=== PATIENT | female | born 1945 | race African-American/Black ===

== ENCOUNTER 2022-03-18 15:57 | Inpatient (IN) | payer OTHER ==
--- OUTSIDE RECORDS SUMMARY | 2022-03-18 16:00 | XMS REPORT | Continuity of Care Document ---
:[address] [facility] t Address [address] [place] [address] Care Team Providers Name Role Phone Carmel-Mbayo_A_AH Attending Clinician Unavailable Carmel-Mbayo_A_AH Admitting Clinician Unavailable Payers Payer Name Policy Type Policy Number Effective Date Expiration Date S edith [facility] - [id number] 2019 [employer] 00:00:00 (MEDICARE REPLACEMENT/ADVANT AGE - HMO) Problems This patient has no known problems. Allergies, Adverse Reactions, Alerts This patient has no known allergies or adverse reactions. Medications This patient has no known medications. Procedures This patient has no known procedures. Encounters Start End Encounter Admission Attending Care Care Encounter Source Date/Time Date/Time Type Type Clinicians Facility Department ID 2019-04-15 2019-04-15 Outpatient Carmel-Mbayo VFP VFP [phone] [facility] 07:13:00 07:13:00 _A_AH [id number] Family Practic e 2019-04-15 2019-04-15 Outpatient Carmel-Mbayo VFP VFP [id number] [facility] 07:13:00 07:13:00 _A_AH [id number] Family Practic e Results This patient has no known results.
[2022-03-18 16:28] LABS: Absolute Lymphocytes (CBC) 2.8 K/uL (0.7-4.9); Hematocrit 36.1 % (36.0-45.0); Lymphocytes % 28.9 % (15.3-44.8); MCV 83.9 fL (80-100); RBC Red Blood Cell Count 4.31 M/uL (3.86-4.86)
[2022-03-18 16:32] LABS: Protime INR 1.01
--- NOTE | 2022-03-18 16:44 | RAD REPORT ---
EXAM DESCRIPTION: CT - Head Brain Wo Cont - 03/18/2022 4:39 pm CLINICAL HISTORY: dizzy near syncope COMPARISON: No comparisons TECHNIQUE: All CT scans are performed using dose optimization technique as appropriate and may inclu de automated exposure control or mA/KV adjustment according to patient size. FINDINGS: No intracranial hemorrhage, hydrocephalus or extra-axial fluid collection.No areas of brai n edema or evidence of midline shift. The paranasal sinuses and mastoids are clear. The calvarium is intact. IMPRESSION: No acute intracranial abnormality.
[2022-03-18 16:49] LABS: MPV 9.8 fL (7.6-11.3)
[2022-03-18 17:03] LABS: Albumin 3.6 g/dL (3.4-5.0); Bilirubin Direct 0.2 mg/dL (0-0.2); Bilirubin Total 0.6 mg/dL (0.2-1.0); Troponin High Sensitivity 23.7 pg/mL (<58.9)
[2022-03-18 17:05] LABS: Potassium 2.9 mmol/L (3.5-5.1)
[2022-03-18 17:20] LABS: Urine Blood Negative (Negative); Urine Glucose Negative (Negative); Urine Protein 1+ (Negative); Urine Specific Gravity 1.015 (1.005-1.030); Urine pH 6.5 (5.0-7.0)
--- NOTE | 2022-03-18 17:48 | RAD REPORT ---
EXAM DESCRIPTION: RAD - Chest Single View - 03/18/2022 5:43 pm CLINICAL HISTORY: SOB Chest pain. COMPARISON: No comparisons FINDINGS: Portable technique limits examination quality. The lungs are grossly clear. The heart is normal in size. No displaced fractures. IMPRESSION: No acute intrathoracic process suspected.
--- NOTE | 2022-03-18 18:12 | EDPHYS ---
Physician Documentation [facility] Name: Mariama Coughlin Age: 76 yrs Sex: Female : 1945 Arrival Date: 03/18/2022 Time: 15:58 Bed 4 Private MD: ED Physician Bishop Perrin HPI: 03/18 16:18 This 76 yrs old Black Female presents to ER via EMS with complaints of near syncope, rn sob. 16:18 The patient has experienced near-syncope. Onset: The symptoms/episode began/occurred rn just prior to arrival. Duration: This was a single episode. Associated injury: The patient did not suffer any apparent associated injury. Associated signs and symptoms: Pertinent positives: chest pain, shortness of breath, Pertinent negatives: abdominal pain, blurred vision, headache, palpitations, seizure. Current symptoms: Currently, the patient is not experiencing any symptoms. The patient has experienced similar episodes in the past. The patient has not recently seen a physician. Pt reports was at mall, walking around, began to feel lightheaded, sob, diaphoretic, and almost had syncopal episode. EMS reports upon arrival, undetectable BP, was diaphoretic, and no palpable distal pulses. Pt denies chest pain currently, but reports lately has been having episodic exertional dyspnea and chest pain. . Historical: - Allergies: 16:03 No Known Allergies; ld1 - PMHx: 16:03 Hypertensive disorder; ld1 - Immunization history:: Adult Immunizations up to date, Client reports receiving the 2nd dose of the Covid vaccine. - Social history:: Smoking status: Patient denies any tobacco usage or history of. Patient/guardian denies using alcohol. - Family history:: not pertinent. - Hospitalizations: : No recent hospitalization is reported. ROS: 16:18 Constitutional: Negative for fever, chills, and weight loss, Eyes: Negative for injury, rn pain, redness, and discharge, Neck: Negative for injury, pain, and swelling, Cardiovascular: Negative for chest pain, palpitations, and edema, Respiratory: + sob Abdomen/GI: Negative for abdominal pain, nausea, vomiting, diarrhea, and constipation, Back: Negative for injury and pain, MS/Extremity: Negative for injury and deformity, Skin: Negative for injury, rash, and discoloration, Neuro: Negative for headache, weakness, numbness, tingling, and seizure. Exam: 16:18 Constitutional: This is a well developed, well nourished patient who is awake, alert, rn and in no acute distress. Head/Face: Normocephalic, atraumatic. Eyes: Periorbital areas with no swelling, redness, or edema. ENT: Dry MM Cardiovascular: Regular rate and rhythm. No pulse deficits. Respiratory: No increased work of breathing, no retractions or nasal flaring. Abdomen/GI: Soft, non-tender Skin: Warm, dry MS/ Extremity: Pulses equal, no cyanosis. Neuro: Awake and alert, GCS 15 18:31 ECG was reviewed by the Attending Physician. rn Vital Signs: 16:02 BP 183 / 79; Pulse 70; Resp 16 S; Temp 97.7(TE); Pulse Ox 98% on R/A; aa5 16:35 BP 179 / 59; Pulse 70; Resp 18 S; Pulse Ox 98% on R/A; aa5 17:17 BP 155 / 103; Pulse 69; Resp 18; Pulse Ox 98% on R/A; ld1 18:30 BP 181 / 93; Pulse 83; Resp 18 S; Temp 98.2(TE); Pulse Ox 97% on R/A; aa5 19:15 BP 159 / 101; Pulse 76; Resp 14; Temp 98(O); Pulse Ox 98% on R/A; Pain 0/10; pf1 20:00 BP 182 / 99; Pulse 80; Resp 18; Pulse Ox 98% on R/A; Pain 0/10; pf1 21:08 BP 153 / 97; Pulse 74; Resp 18; Temp 98.1(A); Pulse Ox 100% on R/A; Pain 0/10; pf1 MDM: 16:00 Patient medically screened. rn 18:08 Differential Diagnosis: cardiac arrhythmia, emotional response, idiopathic syncope, rn vasovagal episode, Pulmonary embolism. Data reviewed: vital signs, nurses notes, lab test result(s), EKG, radiologic studies, CT scan, and as a result, I will admit patient. Management of patient was discussed with the following: Hospitalist: Discussed case with hospitalist service regarding concern for cardiac etiology given exertional dyspnea and near syncope. . Counseling: I had a detailed discussion with the patient and/or guardian regarding: the historical points, exam findings, and any diagnostic results supporting the discharge/admit diagnosis, lab results, radiology results, the need for further work-up and treatment in the hospital. 03/18 16:01 Order name: Basic Metabolic Panel; Complete Time: 17:06 rn 03/18 16:01 Order name: CBC with Diff rn 03/18 16:01 Order name: Hepatic Function; Complete Time: 17:06 rn 03/18 16:01 Order name: Magnesium; Complete Time: 17:06 rn 03/18 16:01 Order name: Protime (+inr); Complete Time: 17:05 rn 03/18 16:01 Order name: Ptt, Activated; Complete Time: 17:05 rn 03/18 16:01 Order name: Troponin High Sensitivity; Complete Time: 17:06 rn 03/18 16:01 Order name: CT Head Brain wo Cont; Complete Time: 17:05 rn 03/18 16:01 Order name: Chest Single View XRAY; Complete Time: 17:53 rn 03/18 16:01 Order name: D-Dimer; Complete Time: 17:05 rn 03/18 17:07 Order name: CT Chest For PE Angio; Complete Time: 18:37 rn 03/18 17:20 Order name: Urine Dipstick-Ancillary; Complete Time: 17:29 EDMS 03/18 18:40 Order name: SARS RAPID rn 03/18 20:09 Order name: CBC Smear Scan EDNE 03/18 16:01 Order name: EKG; Complete Time: 16:02 rn 03/18 16:01 Order name: Cardiac monitoring; Complete Time: 16:02 rn 03/18 16:01 Order name: EKG - Nurse/Tech; Complete Time: 16:11 rn 03/18 16:01 Order name: IV Saline Lock; Complete Time: 16:11 rn 03/18 16:01 Order name: Labs collected and sent; Complete Time: 16:11 rn 03/18 16:01 Order name: O2 Per Protocol; Complete Time: 16: rn 03/18 16:01 Order name: O2 Sat Monitoring; Complete Time: 16: rn 03/18 16:01 Order name: Urine Dipstick-Ancillary (obtain specimen); Complete Time: 17:12 rn EC:31 Rate is 70 beats/min. Rhythm is regular. QRS [place] is Normal. AL interval is normal. QRS rn interval is normal. No Q waves. T waves are Inverted. T waves are Flattened. No ST changes noted. Clinical impression: NSR w/ Non-specific ST/T Changes. Interpreted by me. Reviewed by me. Administered Medications: 18:47 Drug: Potassium Effervescent Tablet 50 mEq Route: PO; aa5 19:40 Follow up: Response: No adverse reaction pf1 21:24 CANCELLED (Other Intervention Used): Metoprolol TARTRATE 50 mg PO once la1 21:27 Drug: Metoprolol 25 mg Route: PO; pf1 21:32 Follow up: Response: No adverse reaction pf1 Disposition Summary: 03/18/22 18:11 Hospitalization Ordered Hospitalization Status: Observation rn Provider: Jame Perrin rn Location: Telemetry/MedSurg (observation) rn Condition: Stable rn Problem: an ongoing problem rn Symptoms: have improved rn Bed/Room Type: Standard rn Room Assignment: 430(03/18/22 21:00) Diagnosis - Near Syncope rn - Chest pain, unspecified rn - Dyspnea, unspecified rn - Hypokalemia rn Forms: - Medication Reconciliation Form rn - SBAR form rn Signatures: Dispatcher [employer] EDMS Bishop Perrin MD MD rn Calderon, Audri RN RN aa5 Rupert Mckinley, SPIRITUAL MINISTER-C SPIRITUAL MINISTER-Cla1 Natacha Patel RN RN cg Remberto Gonzalez RN RN jl7 Jacqueline Benavidez, RN RN ld1 Zoila garcia, RN RN pf1 Corrections: (The following items were deleted from the chart) 21:00 18:11 rn cg 21:24 21:12 Metoprolol TARTRATE 50 mg PO once ordered. la1 la1
--- NOTE | 2022-03-18 18:12 | ER ---
Nurse's Notes [facility] Name: Mariama Coughlin Age: 76 yrs Sex: Female : 1945 Arrival Date: 03/18/2022 Time: 15:58 Bed 4 Private MD: Diagnosis: Near Syncope;Chest pain, unspecified;Dyspnea, unspecified;Hypokalemia Presentation: 03/18 16:02 Chief complaint: EMS states: [place] mall today - Pt reporting ld1 dizziness, lethargy. EMS reports unable to obtain BP reading or palpable BP upon arrival - diaphoresis and confusion upon scene arrival. Coronavirus screen: At this time, the client does not indicate any symptoms associated with coronavirus-19. Ebola Screen: No symptoms or risks identified at this time. Initial Sepsis Screen:. Risk Assessment: Do you want to hurt yourself or someone else? Patient reports no desire to harm self or others. Onset of symptoms was March 18, 2022 at 16:03. 16:02 Method Of Arrival: EMS: [facility] ld1 16:02 Acuity: NATHALIE 2 ld1 16:02 Care prior to arrival: Glucose check: 120. ld1 21:33 Initial Sepsis Screen: Does the patient meet any 2 criteria? No. Patient's initial pf1 sepsis screen is negative. Does the patient have a suspected source of infection? No. Patient's initial sepsis screen is negative. Triage Assessment: 16:03 General: Appears in no apparent distress. comfortable, Behavior is calm, cooperative, ld1 appropriate for age. 16:04 Pain: Denies pain. EENT: No signs and/or symptoms were reported regarding the EENT ld1 system. Neuro: Level of Consciousness is awake, alert, obeys commands, Oriented to person, place, time, situation. Cardiovascular: Capillary refill < 3 seconds Patient's skin is warm and dry. Rhythm is sinus rhythm. Respiratory: Airway is patent Respiratory effort is even, unlabored. GI: Abdomen is round non-distended. : No signs and/or symptoms were reported regarding the genitourinary system. Derm: No signs and/or symptoms reported regarding the dermatologic system. Musculoskeletal: No signs and/or symptoms reported regarding the musculoskeletal system. Historical: - Allergies: 16:03 No Known Allergies; ld1 - PMHx: 16:03 Hypertensive disorder; ld1 - Immunization history:: Adult Immunizations up to date, Client reports receiving the 2nd dose of the Covid vaccine. - Social history:: Smoking status: Patient denies any tobacco usage or history of. Patient/guardian denies using alcohol. - Family history:: not pertinent. - Hospitalizations: : No recent hospitalization is reported. Screenin:05 [facility] ED Fall Risk Assessment (Adult) History of falling in the last 3 months, ld1 including since admission No falls in past 3 months (0 pts). Abuse screen: Denies threats or abuse. Has been threatened or abused. Nutritional screening: No deficits noted. Tuberculosis screening: No symptoms or risk factors identified. Assessment: 16:05 General: Appears comfortable, Behavior is calm, cooperative. Pain: Denies pain. Neuro: aa5 Level of Consciousness is awake, alert, obeys commands, Oriented to person, place, time, situation, Medical Delivery Driver are weak bilaterally Moves all extremities. Speech is normal, Facial symmetry appears normal, Pupils are PERRLA, Pt currently denies dizziness, states "I was at the mall and I started feeling dizzy so I sat down and the staff there called the police and the ambulance". . Cardiovascular: Heart tones S1 S2 present Rhythm is regular. Respiratory: Airway is patent Respiratory effort is even, unlabored, Respiratory pattern is regular, symmetrical. GI: Abdomen is round non-distended, Bowel sounds present X 4 quads. Abd is soft and non tender X 4 quads. Patient currently denies nausea, vomiting. : No signs and/or symptoms were reported regarding the genitourinary system. EENT: No signs and/or symptoms were reported regarding the EENT system. Derm: Skin is dry, Skin is normal, Skin temperature is warm. Musculoskeletal: Range of motion: intact in all extremities. 17:15 Reassessment: Pt assisted to restroom via wheelchair, pt denied any complaints aa5 transferring to wheelchair. Pt placed back in bed and resting at this time. . 18:08 Reassessment: Pt currently at CT . aa5 19:15 General: Appears in no apparent distress. comfortable, Behavior is calm, cooperative, aa9 appropriate for age. Neuro: Level of Consciousness is awake, alert, obeys commands, Oriented to person, place, time, situation. Respiratory: Airway is patent Respiratory effort is even, unlabored. 20:00 General: Appears in no apparent distress. comfortable, well groomed, well developed, pf1 Behavior is calm, cooperative, appropriate for age, quiet. 20:00 Pain: Denies pain. Neuro: No deficits noted. Level of Consciousness is awake, alert, pf1 obeys commands, Oriented to person, place, time, situation, Speech is normal, Facial symmetry appears normal. Cardiovascular: No deficits noted. Heart tones S1 S2 present Rhythm is sinus rhythm. Respiratory: No deficits noted. Airway is patent Trachea midline Respiratory effort is even, unlabored, Respiratory pattern is regular, symmetrical, Breath sounds are clear bilaterally. GI: No deficits noted. Abdomen is round non-distended, obese, Bowel sounds present X 4 quads. Abd is soft and non tender X 4 quads. Patient currently denies pain. : No deficits noted. No signs and/or symptoms were reported regarding the genitourinary system. EENT: No deficits noted. No signs and/or symptoms were reported regarding the EENT system. Derm: No deficits noted. No signs and/or symptoms reported regarding the dermatologic system. Musculoskeletal: No deficits noted. Circulation, motion, and sensation intact. Capillary refill < 3 seconds, Range of motion: intact in all extremities. 21:00 Reassessment: Patient appears in no apparent distress at this time. No changes from pf1 previously documented assessment. Patient and/or family updated on plan of care and expected duration. Pain level reassessed. Patient is alert, oriented x 3, equal unlabored respirations, skin warm/dry/pink. Patient states feeling better. 21:58 Reassessment: Patient appears in no apparent distress at this time. No changes from pf1 previously documented assessment. Patient and/or family updated on plan of care and expected duration. Pain level reassessed. Patient is alert, oriented x 3, equal unlabored respirations, skin warm/dry/pink. Patient states feeling better. Patient states symptoms have improved. Vital Signs: 16:02 BP 183 / 79; Pulse 70; Resp 16 S; Temp 97.7(TE); Pulse Ox 98% on R/A; aa5 16:35 BP 179 / 59; Pulse 70; Resp 18 S; Pulse Ox 98% on R/A; aa5 17:17 BP 155 / 103; Pulse 69; Resp 18; Pulse Ox 98% on R/A; ld1 18:30 BP 181 / 93; Pulse 83; Resp 18 S; Temp 98.2(TE); Pulse Ox 97% on R/A; aa5 19:15 BP 159 / 101; Pulse 76; Resp 14; Temp 98(O); Pulse Ox 98% on R/A; Pain 0/10; pf1 20:00 BP 182 / 99; Pulse 80; Resp 18; Pulse Ox 98% on R/A; Pain 0/10; pf1 21:08 BP 153 / 97; Pulse 74; Resp 18; Temp 98.1(A); Pulse Ox 100% on R/A; Pain 0/10; pf1 ED Course: 15:58 Patient arrived in ED. as 16:00 Bishop Perrin MD is Attending Physician. rn 16:02 Karuna Soto RN is Primary Nurse. aa5 16:03 Triage completed. ld1 16:04 Inserted saline lock: 18 gauge in right antecubital area, using aseptic technique. ld1 16:04 Arm band placed on right wrist. ld1 16:05 No provider procedures requiring assistance completed. ld1 16:05 Patient has correct armband on for positive identification. Placed in gown. Bed in low ld1 position. Call light in reach. Side rails up X2. monitor tech on. Pulse ox on. NIBP on. Door closed. Noise minimized. Warm blanket given. 16:41 CT Head Brain wo Cont In Process Unspecified. EDMS 17:44 Chest Single View XRAY In Process Unspecified. EDMS 18:10 Jame Perrin MD is Hospitalizing Provider. rn 18:12 Inserted saline lock: 22 gauge in left antecubital area, using aseptic technique. jl7 18:17 CT Chest For PE Angio In Process Unspecified. EDMS 18:25 intact, bleeding controlled, Pressure dressing applied, 18G to R AC dc'd. aa5 19:09 Report given to AMALIA Ohara and AMALIA Metz. aa5 19:15 SARS RAPID Sent. aa9 21:53 brief changed. pf1 Administered Medications: 18:47 Drug: Potassium Effervescent Tablet 50 mEq Route: PO; aa5 19:40 Follow up: Response: No adverse reaction pf1 21:24 CANCELLED (Other Intervention Used): Metoprolol TARTRATE 50 mg PO once la1 21:27 Drug: Metoprolol 25 mg Route: PO; pf1 21:32 Follow up: Response: No adverse reaction pf1 Medication: 16:05 VIS not applicable for this client. ld1 Outcome: 18:11 Decision to Hospitalize by Provider. rn 21:54 Admitted to Tele accompanied by tech, via stretcher, room 430, with chart, Report pf1 called to AMALIA Farley 21:54 Condition: stable 21:54 Instructed on the need for admit, Demonstrated understanding of instructions. 22:00 Patient left the ED. pf1 Signatures: Dispatcher [employer] Gail Rodriguez Roman, MD MD rn Karuna Soto RN RN aa5 Remberto Gonzalez RN RN jl7 Jacqueline Benavidez RN RN ld1 Lashay Gardner RN RN aa9 Zoila garcia RN RN pf1 Rupert Mckinley ABSORPTION OPERATOR-Cla1 Corrections: (The following items were deleted from the chart) 18:04 16:02 Chief complaint: EMS states: near syncopal episode at [facility] today - Pt reporting ld1 dizziness, lethargy. EMS reports absent pulses upon arrival - diaphoresis. ld1 18:05 16:02 Acuity: NATHALIE 3 ld1 ld1 18:08 16:05 Reassessment: See triage assessment ld1 aa5 19:16 18:25 intact, bleeding controlled, Pressure dressing applied, 18G to R AC aa5 aa5
--- NOTE | 2022-03-18 18:31 | RAD REPORT ---
EXAM DESCRIPTION: CT - Chest For Pe Angio - 03/18/2022 6:16 pm CLINICAL HISTORY: Chest pain. dyspnea, near syncope COMPARISON: No comparisons TECHNIQUE: CT angiogram of the pulmonary arteries was performed with MIP. All CT scans are performed using dose optimization technique as appropriate and may include automated exposure control or mA/KV adjustment according to patient size. FINDINGS: No evidence of pulmonary thromboembolism. No acute aortic finding demonstrated. The lungs are clear. No significant pericardial or pleural fluid. No concerning bony finding. IMPRESSION: No evidence of pulmonary thromboembolism. No acute lung findings.
[2022-03-18] MEDS ORDERED: POTASSIUM 25 MEQ EFFERV TAB ONE (18:36)
--- NOTE | 2022-03-18 18:55 | P.HP ---
Certification for Inpatient Patient admitted to: Observation With expected LOS: <2 Midnights Patient will require the following post-hospital care: None Practitioner: I am a practitioner with admitting privileges, knowledge of patient current condition, hospital course, and medical plan of care. Services: Services provided to patient in accordance with Admission requirements found in Title 42 Section 412.3 of the Code of Federal Regulations Patient History Date of Service: 03/18/22 Reason for admission: Chest pain History of Present Illness: 76-year-old female with history of hypertension presents emergency department with dyspnea on exertion, chest pain. She reports over the past couple weeks she when she exerts herself she feels some mild tightness in her chest, weakness, fatigue, dyspnea. She denies any previous cardiac evaluation, she describes a near syncopal event today [place] the mall with evaluation by EMS reported that she was diaphoretic and they could not palpate a pulse although she was awake and talking. She was evaluated here in the emergency department her labs were significant for hypokalemia with a potassium 2.9 initial high-sensitivity troponin is 23.7 D-dimer is elevated 1779 CTA chest performed to rule out pulmonary [place]/aortic aneurysm/dissection which was negative for pulmonary embolism or acute aortic findings. CT head negative for any acute findings chest x-ray was unremarkable. ED provider wishes to admit under observation for ACS rule out. Allergies Penicillins Allergy (Intermediate, Verified 01/28/12 00:49) Hives/Rash sulfamethoxazole [From Bactrim] Allergy (Intermediate, Verified 01/28/12 00:49) Hives/Rash trimethoprim [From Bactrim] Allergy (Intermediate, Verified 01/28/12 00:49) Hives/Rash - Past Medical/Surgical History -: Hypertension -: Abdominal surgery Psychosocial/ Personal History: Patient lives at home with family - Family History Mother -: Heart disease, Stroke Father -: Hypertension, Stroke - Social History Smoking Status: Never smoker Alcohol use: No CD- Drugs: No Caffeine use: Yes Place of Residence: Home Review of Systems 10-point ROS is otherwise unremarkable Respiratory: Shortness of Breath, SOB with Excertion Cardiovascular: Chest Pain Physical Examination - Physical Exam General: Alert, In no apparent distress, Oriented x3 HEENT: Atraumatic, PERRLA, Mucous membr. moist/pink, EOMI, Sclerae nonicteric Neck: Supple, 2+ carotid pulse no bruit, No LAD, Without JVD or thyroid abnormality Respiratory: Clear to auscultation bilaterally, Normal air movement Cardiovascular: Regular rate/rhythm, Normal S1 S2 Gastrointestinal: Normal bowel sounds, No tenderness Musculoskeletal: No tenderness Integumentary: No rashes Neurological: Normal speech, Normal strength at 5/5 x4 extr, Normal tone, Normal affect - Studies Laboratory Data (last 24 hrs) 03/18/22 16:10: PT 11.1, INR 1.01, APTT 17.8 L 03/18/22 16:10: WBC 9.60, Hgb 11.7 L, Hct 36.1, Plt Count 186 03/18/22 16:10: Sodium 143, Potassium 2.9 L*, BUN 19 H, Creatinine 1.29 H, Glucose 104, Magnesium 2.0, Total Bilirubin 0.6, AST 14 L, ALT 15, Alkaline Phosphatase 57 Assessment and Plan - Plan Assessment: Chest pain/dyspnea on exertion rule out ACS Hypertension Hypokalemia Plan: Chest pain/dyspnea on exertion rule out ACS Trend troponins, monitor on telemetry, cardiology consult and echocardiogram ordered. We will hold off on aspirin as patient reports that she had previous episodes of bleeding while taking aspirin. Initiated beta-becca therapy, patient on statin previously. Appreciate further input from cardiology. Hypertension Obtain and continue medications as appropriate, metoprolol added. Hypokalemia Replaced in ED, protocol in place DVT PPX: Lovenox Code status: Full Discharge Plan: Home Plan to discharge in: 24 Hours - Advance Directives Does patient have a Living Will: No Does patient have a Durable POA for Healthcare: No - Code Status/Comfort Care Code Status Assessed: Yes (Full code) Critical Care: No Time Spent Managing Pts Care (In Minutes): 55
[2022-03-18 19:32] LABS: SARS-CoV-2 Antigen Rapid Res Negative (Negative)
[2022-03-18 20:09] LABS: Blood Morphology Comment NOT SEEN (NOT SEEN); Platelet Estimate ADEQ; White Blood Cell Scan OK (OK)
[2022-03-18] MEDS ORDERED: METOPROLOL TAR 25 MG TAB ONE (21:27)
[2022-03-18] MEDS ORDERED: ONDANSETRON 4 MG/2 ML VIAL IV PRN (21:40)
[2022-03-18 22:54] VITALS: BMI 26.6
[2022-03-18] MEDS: ATORVASTATIN 40 MG TAB PO SCH (22:55)
[2022-03-19] MEDS ORDERED: HEPARIN 5000 UNIT/ML 1 ML VIAL IV ONE (00:36)
[2022-03-19] MEDS ORDERED: HYDRALAZINE HCL 20 MG/ML VIAL IV PRN (00:49)
[2022-03-19] MEDS ORDERED: HEPARIN/D5W 25,000 UNIT/500 ML BAG IV SCH (01:00)
[2022-03-19 05:28] LABS: Absolute Lymphocytes (CBC) 2.2 K/uL (0.7-4.9); Lymphocytes % 26.5 % (15.3-44.8); MCV 82.4 fL (80-100); MPV 9.4 fL (7.6-11.3); RBC Red Blood Cell Count 4.25 M/uL (3.86-4.86)
[2022-03-19] MEDS: METOPROLOL TAR 25 MG TAB PO SCH ×2 (05:48→18:14)
[2022-03-19 05:57] LABS: Magnesium 2.1 mg/dL (1.6-2.4); Potassium 3.1 mmol/L (3.5-5.1); Thyroid Stimulating Hormone 2.35 uIU/mL (0.358-3.740)
[2022-03-19 06:04] LABS: Troponin High Sensitivity 78.6 pg/mL (<58.9)
[2022-03-19] MEDS ORDERED: INFLUENZA VACCINE (for 6+ mo) 0.5 ML DOSE IMVAC ONE (08:00)
[2022-03-19] MEDS ORDERED: ENOXAPARIN 40 MG/0.4 ML SQ SCH (09:00)
[2022-03-19] MEDS ORDERED: POTASSIUM CL SA 10 MEQ TAB PO ONE (09:00)
--- NOTE | 2022-03-19 09:21 | CON ---
Date of Consultation: 03/19/2022 Reason For Consultation: Chest pain. History Of Present Illness: A 76-year-old female with history of hypertension, presented to the [facility] room with shortness of breath and chest pain. Claimed that she was shopping when she felt clam my, started to sweat profusely along with shortness of breath and chest pressure, almost passed out a nd this has happened 2 times in the past week, so presented to the emergency room for evaluation. Th ere is no chest pain at the present time. No other complaints. Past Medical History: Hypertension. Medications: Refer to reconciliation sheet for detailed list. Allergies: PENICILLIN AND SULFA DRUGS. Family History: No premature coronary artery disease or cancer. Social History: She does not smoke or drink. Does not use any drugs. Review of Systems: All systems reviewed and they were negative except what mentioned in HPI. Physical Examination: Vital Signs: Temperature is 99.8, pulse 83, breathing at 18, blood pressure is 141/71, saturating 99 % room air. General: Pleasant elderly female, in no apparent distress. Head and Neck: Pupils are equal, reactive to light. Intact eye movements. No JVD. No cervical lym phadenopathy. Neck is supple. Thyroid is not enlarged. Lungs: Clear to auscultation bilaterally. No rhonchi, wheezing, or crackles. No accessory muscle u se. Heart: Regular rate and rhythm. No extra sounds. Abdomen: Soft, nontender. Bowel sounds positive. No organomegaly. No masses or hernia. No rigidi ty or rebound. Extremities: No edema, clubbing, or cyanosis. Intact pulses. Skin: No rash. Neurologic: Alert, awake, oriented x3. No acute focal deficits appreciated. Investigations: Troponin peaked at 158. BUN 16, creatinine 0.86, and hemoglobin 11.5. Assessment And Recommendations: 1.Chest pain, typical chest pain with elevated troponin suggestive of acute coronary syndrome. Keep n.p.o. and IV heparin. Start on baby aspirin and plan for coronary angiogram this afternoon. 2.Dyslipidemia. Continue statin. 3.Hypertension. Recommend to adjust the dose of beta-becca and go up on metoprolol to 50 mg twice a day. SR/MODL Voice ID: [id number] Report ID: [id number]
[2022-03-19] MEDS ORDERED: HEPA 1000U/500MLS 2,000 UNIT/1,000 ML BAG IV ONE (10:46)
[2022-03-19] MEDS ORDERED: LIDOCAINE 1% 20 ML MDV ONE (10:46)
[2022-03-19] MEDS ORDERED: ASPIRIN 325 MG TAB ONE (10:47)
[2022-03-19] MEDS ORDERED: NA CHLORIDE 0.9% 500 ML ONE (10:47)
[2022-03-19] MEDS ORDERED: VERAPAMIL HCL 10 MG/4 ML VIAL IV ONE (10:47)
[2022-03-19] MEDS ORDERED: HEPARIN 5000 UNIT/ML 1 ML VIAL ONE (10:47)
[2022-03-19] MEDS ORDERED: TICAGRELOR 90 MG TABLET PO ONE (10:47)
[2022-03-19] MEDS ORDERED: ATROPINE SULF 1 MG/10 ML SYR IV ONE (10:47)
[2022-03-19] MEDS ORDERED: HEPARIN 10,000 UNIT/10 ML VIAL IV ONE (10:47)
[2022-03-19] MEDS ORDERED: CLOPIDOGREL 75 MG TABLET ONE (10:47)
[2022-03-19] MEDS ORDERED: MIDAZOLAM HCL 2 MG/2 ML INJ ONE (10:57)
[2022-03-19] MEDS ORDERED: FENTANYL CITR 100 MCG/2 ML ONE (10:57)
[2022-03-19 12:24] VITALS: O2SAT 100
--- NOTE | 2022-03-19 16:51 | EKG ---
Test Date: 2022-03-18 Test Time: 16:21:06 Airplane Inspector: ALONZO MEASUREMENT RESULTS: Intervals: Rate: 70 AK: 188 QRSD: 76 QT: 348 QTc: 375 [place]: P: 38 AK: 188 QRS: 6 T: -73 INTERPRETIVE STATEMENTS: Normal sinus rhythm ST & T wave abnormality, consider inferolateral ischemia Abnormal ECG Compared to ECG 03/18/2022 16:18:41 Possible ischemia now present Left ventricular hypertrophy no longer present ST (T wave) deviation still present Electronically Signed On 03-19-22 16:50:09 MERCHANDISING STOCK ASSOCIATE by Alfonso Francisco
--- NOTE | 2022-03-19 18:30 | OP ---
Date of Procedure: 03/19/2022 Surgeon: WERO GARZA Procedures Performed: 1.Selective coronary angiogram. 2.Left heart catheterization. Indication: Atypical chest pain with elevated troponin. Access: Right radial artery 6-Trinidadian closed with TR band. Complications: None. Bleeding: Less than 10 mL. Anesthesia: Total sedation time was 25 minutes, used fentanyl and Versed. Description Of Procedure: After risks, benefits, alternatives were explained, the patient agreed to procedure and signed informed consent. The patient was brought into the cardiac catheterization [facility], prepped and draped in the usual sterile fashion. Then, I accessed radial artery using pediat kristen micropuncture kit, placed a 6-Trinidadian Slender sheath, and took 5-Trinidadian [place] 4.0 catheter into th e aortic root, engaged left main and right coronary artery, took standard views and then catheter was advanced over the wire into the LV, measured the LVEDP, and pullback did not record any gradient. T hen, I removed the catheter and sheath, placed TR band with good hemostasis. Findings: 1.Left main; large, normal. 2.LAD; large. The proximal segment is normal. In the mid segment, there was a focal 20% stenosis. Otherwise, it is normal. Diagonal branches are normal. 3.Left circumflex; very tortuous, moderate-sized and normal. 4.RCA; moderate-sized and normal and it is codominant circulation. 5.Normal LVEDP at 5 mmHg. Conclusion: 1.Mild nonobstructive coronary artery disease as outlined above. 2.Normal LVEDP. Recommendation: Medical management. /MODL Voice ID: [id number] Report ID: [id number]
[2022-03-19] MEDS ORDERED: DIPHENHYDRAMINE 25 MG TAB/CAP PO PRN (21:15)
[2022-03-19] MEDS: ATORVASTATIN 40 MG TAB PO SCH (21:50)
--- NOTE | 2022-03-19 22:47 | P.PN ---
Date of Service: 03/19/22 Subjective: sleepy, s/p cath no chest pain, falling asleep while talking to me no nausea/vomiting ROS: A complete review of systems was performed and is negative except as mentioned above Physical Exam: Gen: NAD, fatigued appearing, falling asleep while talking HEENT: normal conjunctiva, sclera anicteric CV: regular rate & rhythm, no edema Pulm: non-labored respirations, clear bilaterally Abd: soft, non-tender, non-distended Neuro: normal speech, normal affect, somnolent vitals reviewed Problem List Chest pain/dyspnea on exertion rule out ACS Hypertension Hypokalemia Chest pain/dyspnea on exertion concern for ACS cardiology consulted echo ordered s/p cath today, reportedly no intervention needed unclear what lead to patient's symptoms hypokalemia somnolent hypertensive - cardio recommended increase metoprolol 50mg twice daily VTE: lovenox Code: full Dispo: anticipate dc home tomorrow
[2022-03-20 06:17] LABS: Absolute Lymphocytes (CBC) 2.5 K/uL (0.7-4.9); Hematocrit 32.7 % (36.0-45.0); MCV 83.3 fL (80-100); MPV 9.6 fL (7.6-11.3); RBC Red Blood Cell Count 3.93 M/uL (3.86-4.86)
[2022-03-20 06:29] LABS: Magnesium 2.2 mg/dL (1.6-2.4); Potassium 3.4 mmol/L (3.5-5.1)
[2022-03-20] MEDS: METOPROLOL TAR 25 MG TAB PO SCH (06:48)
--- NOTE | 2022-03-20 08:47 | ECHO ---
HEIGHT: 5 ft 6 in WEIGHT: 165 lb 8 oz DATE OF STUDY: 03/19/[address]: Rupert Mckinley NP 2-DIMENSIONAL: YES M.MODE: YES DOPPLER: YES COLOR FLOW: YES TDS: NO PORTABLE: YES DEFINITY: NO BUBBLE STUDY: NO DIAGNOSIS: CHEST PAIN, NEAR SYNCOPE CARDIAC HISTORY: CATHERIZATION: NO SURGERY: NO PROSTHETIC VALVE: NO PACEMAKER: NO MEASUREMENTS (cm) DIASTOLIC (NORMALS) SYSTOLIC (NORMALS) IVSd 0.9 (0.6-1.2) LA Diam 2.2 (1.9-4.0) LVEF 67% LVIDd 4.6 (3.5-5.7) LVIDs 2.9 (2.0-3.5) %FS 37% LVPWd 1.0 (0.6-1.2) Ao Diam 2.9 (2.0-3.7) 2 DIMENSIONAL ASSESSMENT: RIGHT ATRIUM: NORMAL LEFT ATRIUM: NORMAL RIGHT VENTRICLE: NORMAL LEFT VENTRICLE: NORMAL TRICUSPID VALVE: MILD TRICUSPID REGURGITATION MITRAL VALVE: MILD MITRAL REGURGITATION PULMONIC VALVE: NORMAL AORTIC VALVE: MILD AORTIC INSUFFICIENCY PERICARDIAL EFFUSION: NONE AORTIC ROOT: NORMAL LEFT VENTRICULAR WALL MOTION: NORMAL. DOPPLER/COLOR FLOW: SEE BELOW. COMMENTS: 1. NORMAL LEFT VENTRICULAR EJECTION FRACTION 60-65%. 2. NORMAL WALL MOTION. 3. MILD TRICUSPID REGURGITATION. 4. MILD MITRAL REGURGITATION. 5. GRADE I DIASTOLIC DYSFUNCTION. 6. MILD AORTIC INSUFFICIENCY. TECHNOLOGIST: LITO ROSADO
[2022-03-20] MEDS ORDERED: lisinopriL 20 MG TAB PO SCH (09:00)
[2022-03-20] MEDS ORDERED: POTASSIUM CL SA 10 MEQ TAB PO ONE (09:00)
--- NOTE | 2022-03-20 09:08 | P.DS ---
Admission Date: 03/19/22 Discharge Date: 03/20/22 Disposition: ROUTINE DISCHARGE Discharge Condition: FAIR Reason for Admission: Chest pain Brief History of Present Illness: 76-year-old female with history of hypertension presents emergency department with dyspnea on exertion, chest pain. She reported chest tightness with exertion, weakness, fatigue, dyspnea. She denied any previous cardiac evaluation. She described a near syncopal event while [place] the [place]. She was evaluated here in the emergency department and her labs were significant for hypokalemia with a potassium 2.9 initial high-sensitivity troponin is 23.7 D-dim er elevated to 1779. CTA chest performed to rule out pulmonary embolism/aortic aneurysm/dissection was negative. CT head negative for any acute findings chest x-ray was unremarkable. Patient admitted for further management. Hospital Course: Diagnosis: Chest paind rule out ACS Hypertension Hypokalemia Patient admitted to the medical floor, troponin trended negative. She was seen and evaluated by cardiology Dr. Francisco. Cardiac cath performed which showed mild coronary artery disease, no occlusion to warrant intervention. Echocardiogram was also unremarkable. She had hypokalemia which was replaced. Patient was hypertensive. Cardiology recommended metoprolol 50 mg/day. ACS ruled. His antihypertensive lisinopril resumed on discharge. Patient deemed clinically stable for discharge. He is prescribed aspirin and his pravastatin dose increased for aggressive lipid control. Vital Signs/Physical Exam: Temp Pulse Resp BP Pulse Ox 98.6 F 61 18 156/72 H 99 03/20/22 04:00 03/20/22 08:28 03/20/22 04:00 03/20/22 08:28 03/20/22 04:00 General: Alert, In no apparent distress, Oriented x3 HEENT: Mucous membr. moist/pink Neck: JVD not distended Respiratory: Clear to auscultation bilaterally, Normal air movement, Crackles/rales Cardiovascular: No edema, Regular rate/rhythm, Normal S1 S2 Gastrointestinal: Normal bowel sounds, Soft and benign, Non-distended, No tenderness Musculoskeletal: No swelling Integumentary: No rashes, No cyanosis Neurological: Normal strength at 5/5 x4 extr Laboratory Data at Discharge: WBC 5.90 K/uL (4.3-10.9) 03/20/22 05:58 Hgb 10.8 g/dL (12.0-15.0) L 03/20/22 05:58 Hct 32.7 % (36.0-45.0) L 03/20/22 05:58 Plt Count 174 K/uL (152-406) 03/20/22 05:58 PT 11.1 SECONDS (9.5-12.5) 03/18/22 16:10 INR 1.01 03/18/22 16:10 APTT 98.5 SECONDS (24.3-36.9) H 03/19/22 09:32 Sodium 142 mmol/L (136-145) 03/20/22 05:57 Potassium 3.4 mmol/L (3.5-5.1) L 03/20/22 05:57 BUN 16 mg/dL (7-18) 03/20/22 05:57 Creatinine 0.89 mg/dL (0.55-1.02) 03/20/22 05:57 Glucose 87 mg/dL (74-106) 03/20/22 05:57 Magnesium 2.2 mg/dL (1.6-2.4) 03/20/22 05:57 Total Bilirubin 0.6 mg/dL (0.2-1.0) 03/18/22 16:10 AST 14 U/L (15-37) L 03/18/22 16:10 ALT 15 U/L (13-56) 03/18/22 16:10 Alkaline Phosphatase 57 U/L (45-117) 03/18/22 16:10 Triglycerides 30 mg/dL (<150) 03/19/22 05:14 Cholesterol 210 mg/dL (<200) H 03/19/22 05:14 HDL Cholesterol 86 mg/dL (40-60) H 03/19/22 05:14 Cholesterol/HDL Ratio 2.44 03/19/22 05:14 Home Medications: Lisinopril [Zestril] 40 mg PO DAILY 03/18/22 Aspirin [Aspirin EC 81 MG] 81 mg PO DAILY #30 tab 03/20/22 Metoprolol Tartrate [Lopressor*] 25 mg PO BID 6AM 6PM #60 tab 03/20/22 Pravastatin Sodium 40 mg PO BEDTIME #60 tab 03/20/22 New Medications: Aspirin [Aspirin EC 81 MG] 81 mg PO DAILY #30 tab Metoprolol Tartrate [Lopressor*] 25 mg PO BID 6AM 6PM #60 tab Pravastatin Sodium 40 mg PO BEDTIME #60 tab Followup: NONE,NONE [Primary Care Provider] - 1 Week Alfonso Francisco MD [ACTIVE - CAN ADMIT] - 1 Week Time spent managing pt's care (in minutes): 33
[2022-03-20 12:16] VITALS: BP 126/83; TEMP 97.6
--- NOTE | 2022-03-20 13:05 | PN ---
Date of Progress Note: 03/20/2022 Subjective: Seen by bedside. Doing clinically well. Does not have any chest pain, status post hear t catheterization yesterday and she had mild nonobstructive coronary artery disease. Review of Systems: No chest pain, shortness of breath, orthopnea, or cough. No nausea, vomiting, or diarrhea. All othe r systems were reviewed, and they were negative. Physical Examination: Vital Signs: Reviewed. Head and Neck: Pupils are equal, reactive to light. Intact eye movements. No JVD. No cervical lym phadenopathy. Neck is supple. Thyroid is not enlarged. Lungs: Clear to auscultation bilaterally. No rhonchi, rales, or crackles. No accessory muscle use. Heart: Regular rate and rhythm. No extra sounds. Abdomen: Soft, nontender. Bowel sounds positive. No organomegaly. No masses or hernia. No rigidi ty or rebound. Extremities: No edema, clubbing, or cyanosis. Intact pulses. Skin: No rash. Neurologic: Alert, awake, oriented x3. No acute focal deficits appreciated. Investigations: BUN 16, creatinine 0.86, and hemoglobin is 10.8. Assessment And Recommendations: 1.Chest pain with elevated troponin. Ejection fraction is normal on echo and coronary angiogram. S he has only 20% mid-LAD, so this is demand and there is no evidence of heart attack. Recommend aggre ssive risk factor modification. Lipitor 40 mg q.h.s., and baby aspirin daily and the blood pressure control. 2.Hypertension. Blood pressure is controlled. Continue current medications. SR/MODL Voice ID: [id number] Report ID: [id number]
== END 2022-03-20 12:45 | disposition home or self-care (01) | DRG 287 ==
LOC: ER 15:57 → ERHOLD 18:46 → 4TH 21:37 → OBSVTOIN 03-19 16:25
PROVIDERS: ADMIT Hospitalist; ATTEND Internal Medicine
PROC: 4A023N7 Measurement of Cardiac Sampling and Pressure, Left Heart, Percutaneous Approach (ICD-10-PCS; principal; 2022-03-19)
PROC: B2111ZZ Fluoroscopy of Multiple Coronary Arteries using Low Osmolar Contrast (ICD-10-PCS; 2022-03-19)
DX: R07.89 Other chest pain (principal); I10 Essential (primary) hypertension; E87.6 Hypokalemia; E78.5 Hyperlipidemia, unspecified; I25.10 Atherosclerotic heart disease of native coronary artery without angina pectoris; Z88.0 Allergy status to penicillin; Z88.1 Allergy status to other antibiotic agents; Z79.82 Long term (current) use of aspirin; Z79.899 Other long term (current) drug therapy; Z20.822 Contact with and (suspected) exposure to COVID-19
CPT/HCPCS: 36415; 70450; 71045; 71275; 76937; 80048; 80061; 80076; 81003; 83735; 84439; 84443; 84484; 85025; 85379; 85610; 85730; 87811; 93005; 93306; 93458; 99285; C1893; G0378; J0360; J0461; J1644; J2001; J2250; J3010; J7040; Q9966; Q9967